=== PATIENT | female | born 2000 | race Hispanic/Latino ===

== ENCOUNTER 2023-03-06 10:10 | Day surgery (SDC) | payer OTHER ==
[2023-03-06] MEDS ORDERED: Acetaminophen 500 MG TAB ONE ×2 (10:22)
[2023-03-06] MEDS ORDERED: Iron Sucrose Complex 500 MG in Sodium Chloride 0.9% 250 ML 250 ML IVPB SCH (10:30)
[2023-03-06] MEDS ORDERED: Acetaminophen 500 MG TAB PO SCH (10:30)
== END 2023-03-06 15:00 | disposition home or self-care (01) ==
LOC: CSHSDC/OP 10:10 → EDBD 10:10 → CSHSDC/OP 15:00
PROVIDERS: ATTEND Student in an Organized Health Care Education/Training Program
DX: O99.019 Anemia complicating pregnancy, unspecified trimester (principal); D64.9 Anemia, unspecified; Z3A.00 Weeks of gestation of pregnancy not specified
CPT/HCPCS: J1756; J7050